=== PATIENT | female | born 1955 | race African-American/Black ===

== ENCOUNTER 2017-02-22 07:08 | Emergency (ER) | payer MEDICAID ==
[~2017-02-22] VITALS: Ht 165.1 cm; Wt 57.0 kg
[~2017-02-22 07:08] MED LIST: ASPI-1159 PO; BUPR300T52 PO; CELE200C PO; EMTR1TAB11 PO; GABA800T PO; HYDR-523 PO; LANS30CA52 PO; METO25TA6 PO; QUET150T PO; [UNRECOGNIZED DRUG - CODE] PO
[2017-02-22 07:17] VITALS: BP 153/77
[2017-02-22] MEDS ORDERED: ONDANSETRON HCL 4MG/2ML VIAL IV STA (08:37)
[2017-02-22] MEDS ORDERED: MORPHINE SULFATE 4 MG/ML CPJ (NOT FOR IM USE) IV STA (08:37)
[2017-02-22] MEDS ORDERED: SODIUM CHLORIDE 0.9% 1,000 ML IV ONE (08:37)
[2017-02-22 09:05] LABS: BASOPHILS % 0.4 % (0.0-2.0); EOSINOPHILS % 0.2 % (0.0-5.0); HEMATOCRIT. 32.3 % (36.0-48.0); HEMOGLOBIN. 11.1 g/dL (12.0-16.0); LYMPHOCYTES % 22.8 % (20.0-50.0); MEAN CORPUSCULAR HEMOGLOBIN 30.6 pg (28.0-32.0); MEAN CORPUSCULAR VOLUME 89.2 fL (81.0-99.0); MEAN PLATELET VOLUME 7.7 fl (7.4-10.4); MONOCYTES % 5.6 % (2.0-8.0); PLATELET 194 x1000/uL (130-400); RED BLOOD CELL COUNT 3.62 mill/uL (4.2-5.4); RED CELL DISTRIBUTION WIDTH 13.9 % (11.6-14.6)
[2017-02-22 09:10] LABS: INR 1.1; PARTIAL THROMBOPLASTIN TIME 28.9 sec (23.4-31.0); PROTHROMBIN TIME 11.8 sec (9.4-11.6)
[2017-02-22 09:15] LABS: CARBON DIOXIDE 26 mEq/L (21-32); CHLORIDE 105 mEq/L (98-107)
[2017-02-22 10:26] LABS: CLARITY URINE CLEAR (CLEAR); COLOR URINE YELLOW (YELLOW); GLUCOSE URINE NEGATIVE (NEGATIVE); KETONES URINE TRACE (NEGATIVE); LEUKOCYTE ESTERASE URINE NEGATIVE (NEGATIVE); NITRITE URINE NEGATIVE (NEGATIVE); OCCULT BLOOD URINE NEGATIVE (NEGATIVE); PH URINE 7.5 (4.5-8.0); PROTEIN URINE NEGATIVE (NEGATIVE); SPECIFIC GRAVITY URINE 1.009 (1.005-1.030)
[2017-02-22] MEDS ORDERED: IOHEXOL-300 100 ML BOTTLE ONE (13:27)
[2017-02-22] MEDS ORDERED: SODIUM CHLORIDE 0.9% 10ML VIAL ONE (13:27)
== END 2017-02-22 12:47 | disposition home or self-care (01) ==
LOC: ER 07:55
DX: A05.9 Bacterial foodborne intoxication, unspecified (principal); Z20.6 Contact with and (suspected) exposure to human immunodeficiency virus [HIV]; Z88.0 Allergy status to penicillin; Z79.82 Long term (current) use of aspirin; Z90.710 Acquired absence of both cervix and uterus; Z88.2 Allergy status to sulfonamides
CPT/HCPCS: 36415; 71010; 74177; 80053; 81003; 83690; 85025; 85610; 85730; 96361; 96374; 96375; 99285; A4216; C1893; J2270; J2405; J7030; Q9967; Z7610

== ENCOUNTER 2020-02-12 20:19 | Emergency (ER) | payer MEDICAID ==
[~2020-02-12] VITALS: Ht 170.2 cm; Wt 59.0 kg
[~2020-02-12 20:19] MED LIST changes: -ASPI-1159 PO; +ASPI-1497 PO; -QUET150T PO; +QUET150T2 PO; -[UNRECOGNIZED DRUG - CODE] PO; +[UNRECOGNIZED DRUG - OTHER] PO
[2020-02-12] MEDS ORDERED: ONDANSETRON HCL 4MG/2ML INJ IV ONE (21:30)
[2020-02-12 21:54] LABS: BASOPHILS % 0.3 % (0.0-2.0); EOSINOPHILS % 0.1 % (0.0-5.0); HEMOGLOBIN. 10.8 g/dL (12.0-16.0); LYMPHOCYTES % 23.8 % (20.0-50.0); MEAN CORPUSCULAR HEMOGLOBIN 31.2 pg (28.0-32.0); MEAN CORPUSCULAR VOLUME 92.4 fL (81.0-99.0); MEAN PLATELET VOLUME 7.8 fl (7.4-10.4); MONOCYTES % 3.7 % (2.0-8.0); NEUTROPHILS % 72.1 % (40.0-76.0); PLATELET 213 x1000/uL (130-400); RED BLOOD CELL COUNT 3.46 mill/uL (4.2-5.4); RED CELL DISTRIBUTION WIDTH 15.4 % (11.6-14.6)
[2020-02-12 21:59] LABS: CHLORIDE 104 mEq/L (98-107)
[2020-02-12] MEDS ORDERED: MORPHINE SULFATE 2 MG/ML CPJ (NOT FOR IM USE) IV ONE (22:00)
[2020-02-13 01:36] VITALS: BP 126/65
== END 2020-02-13 01:37 | disposition home or self-care (01) ==
LOC: ER 20:19
DX: R10.9 Unspecified abdominal pain (principal); G89.18 Other acute postprocedural pain; R00.0 Tachycardia, unspecified; Z90.710 Acquired absence of both cervix and uterus; Z79.82 Long term (current) use of aspirin; Z79.899 Other long term (current) drug therapy; Z88.2 Allergy status to sulfonamides; Z88.0 Allergy status to penicillin
CPT/HCPCS: 36415; 71045; 71250; 80053; 83690; 83880; 84484; 85025; 93005; 96374; 96375; 99285; J2270; J2405